=== PATIENT | female | born 2000 | race Caucasian/White ===

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

== ENCOUNTER 2020-01-08 17:16 | Emergency (ER) | payer SELFPAY ==
--- NOTE | 2020-01-08 17:58 | ER ---
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 Transition of care: patient was not received from another setting of care. Onset: The symptoms/episode began/occurred suddenly. Anaphylaxis evaluation, the patient reports or I have noted the following symptoms which indicate a significant risk of anaphylaxis:. Onset of symptoms was January 08, 2020. Risk Assessment: Do you want to hurt yourself or someone else? Patient reports no desire to harm self or others. Care prior to arrival: None. 17:26 Method Of Arrival: Ambulatory hb 17:26 Acuity: GLORIA 3 hb 18:47 Initial Sepsis Screen: Does the patient meet any 2 criteria? No. Patient's initial ls4 sepsis screen is negative. Does the patient have a suspected source of infection? No. Patient's initial sepsis screen is negative. Triage Assessment: 17:57 General: Appears in no apparent distress. comfortable, Behavior is calm, cooperative, ls4 appropriate for age. Pain: Denies pain. Neuro: No deficits noted. Cardiovascular: No deficits noted. Respiratory: No deficits noted. 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 - Coronavirus screen:: The patient has NOT traveled to [place] in the past 14 days. The patient has NOT had contact with known/suspected case of Coronavirus? Proceed with normal triage procedures. - Social history:: Smoking status: Reported history of juuling and/or vaping. - Ebola Screening: : No symptoms or risks identified at this time. Screenin:45 Abuse screen: Denies threats or abuse. Denies injuries from another. Nutritional ls4 screening: No deficits noted. Tuberculosis screening: No symptoms or risk factors identified. Fall Risk None identified. Assessment: 17:30 General: Appears in no apparent distress. Behavior is calm, cooperative. Respiratory: ls4 Airway is patent Respiratory effort is even, unlabored, Respiratory pattern is regular, Breath sounds are clear bilaterally. 17:30 Neuro: No deficits noted. Derm: No deficits noted. Musculoskeletal: No deficits noted. ls4 18:44 Reassessment: Patient appears in no apparent distress at this time. Patient and/or ls4 family updated on plan of care and expected duration. Pain level reassessed. Patient is alert, oriented x 3, equal unlabored respirations, skin warm/dry/pink. Vital Signs: 17:28 BP 95 / 51; Pulse 104; Resp 16; Temp 97.2; Pulse Ox 98% on R/A; Weight 56.7 kg; Height hb 5 ft. 2 in. (157.48 cm); Pain 0/10; 18:30 BP 102 / 58; Pulse 72; Resp 14; Temp 97.9; Pulse Ox 98% on R/A; Pain 0/10; ls4 17:28 Body Mass Index 22.86 (56.70 kg, 157.48 cm) hb ED Course: 17:18 Patient arrived in ED. ag5 17:27 Triage completed. hb 17:28 Arm band placed on. hb 17:29 Victorino Enriquez MD is Attending Physician. shashank 17:29 Patient has correct armband on for positive identification. Bed in low position. Call ls4 light in reach. Side rails up X 1. 17:29 Pulse ox on. NIBP on. Verbal reassurance given. ls4 17:32 No provider procedures requiring assistance completed. Patient did not have IV access ls4 during this emergency room visit. 17:56 Jada Mclean, RN is Primary Nurse. ls4 Administered Medications: 18:03 Drug: Pepcid 40 mg Route: PO; ls4 18:30 Follow up: Response: No adverse reaction; Marked relief of symptoms ls4 18:03 Drug: predniSONE 60 mg Route: PO; ls4 18:30 Follow up: Response: No adverse reaction; Marked relief of symptoms ls4 18:04 Drug: Benadryl 50 mg Route: PO; ls4 18:42 Follow up: Response: No adverse reaction; Marked relief of symptoms ls4 Outcome: 17:46 Discharge ordered by . [facility] 18:46 Discharged to home ambulatory, with significant other. ls4 18:46 Condition: good 18:46 Discharge instructions given to patient, significant other, Instructed on discharge instructions, follow up and referral plans. medication usage, Demonstrated understanding of instructions, follow-up care, medications, Prescriptions given X 4. 18:49 Patient left the ED. ls4 Signatures: Victorino Enriquez MD MD cha Baxter, Heather, RN Jada Cox RN RN ls4 Dontae Rae [facility]
--- NOTE | 2020-01-08 17:58 | EDPHYS ---
Physician Documentation [facility] Name: Meek Kee Age: 20 yrs Sex: Female : 2000 Arrival Date: 01/08/2020 Time: 17:18 Bed 30 Private MD: ED Physician Victorino Enriquez HPI: 01/08 17:37 This 20 yrs old Female presents to ER via Ambulatory with complaints of shashank Allergic Reaction. 17:37 The patient presents with difficulty swallowing, localized swelling, nasal itching, shashank redness of skin, runny nose, swelling of the lips. Onset: The symptoms/episode began/occurred 2 hour(s) ago. Associated signs and symptoms: Pertinent positives:. 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 - Coronavirus screen:: The patient has NOT traveled to [place] in the past 14 days. The patient has NOT had contact with known/suspected case of Coronavirus? Proceed with normal triage procedures. - Social history:: Smoking status: Reported history of juuling and/or vaping. - Ebola Screening: : No symptoms or risks identified at this time. ROS: 17:41 Constitutional: Negative for fever, chills, and weight loss, Eyes: Negative for injury, shashank pain, redness, and discharge, ENT: Negative for injury, pain, and discharge, Neck: Negative for injury, pain, and swelling, Cardiovascular: Negative for chest pain, palpitations, and edema, Abdomen/GI: Negative for abdominal pain, nausea, vomiting, diarrhea, and constipation, Back: Negative for injury and pain, : Negative for injury, bleeding, discharge, and swelling, MS/Extremity: Negative for injury and deformity, Skin: Negative for injury, rash, and discoloration, Neuro: Negative for headache, weakness, numbness, tingling, and seizure. 17:41 Respiratory: Positive for cough. 17:41 Skin: Positive for rash. Exam: 17:41 Constitutional: This is a well developed, well nourished patient who is awake, alert, shashank and in no acute distress. Head/Face: Normocephalic, atraumatic. Eyes: Pupils equal round and reactive to light, extra-ocular motions intact. Lids and lashes normal. Conjunctiva and sclera are non-icteric and not injected. Cornea within normal limits. Periorbital areas with no swelling, redness, or edema. Neck: Trachea midline, no thyromegaly or masses palpated, and no cervical lymphadenopathy. Supple, full range of motion without nuchal rigidity, or vertebral point tenderness. No Meningismus. Chest/axilla: Normal chest wall appearance and motion. Nontender with no deformity. No lesions are appreciated. Cardiovascular: Regular rate and rhythm with a normal S1 and S2. No gallops, murmurs, or rubs. Normal PMI, no JVD. No pulse deficits. Respiratory: Lungs have equal breath sounds bilaterally, clear to auscultation and percussion. No rales, rhonchi or wheezes noted. No increased work of breathing, no retractions or nasal flaring. Abdomen/GI: Soft, non-tender, with normal bowel sounds. No distension or tympany. No guarding or rebound. No evidence of tenderness throughout. Back: No spinal tenderness. No costovertebral tenderness. Full range of motion. MS/ Extremity: Pulses equal, no cyanosis. Neurovascular intact. Full, normal range of motion. Neuro: Awake and alert, GCS 15, oriented to person, place, time, and situation. Cranial nerves II-XII grossly intact. Motor strength 5/5 in all extremities. Sensory grossly intact. Cerebellar exam normal. Normal gait. Psych: Awake, alert, with orientation to person, place and time. Behavior, mood, and affect are within normal limits. 17:41 ENT: Mouth: Lips: dry, Oral mucosa: normal, Gums: normal with healthy appearance, Tongue: is normal, abscess, is not appreciated, drooling, is not appreciated. Vital Signs: 17:28 BP 95 / 51; Pulse 104; Resp 16; Temp 97.2; Pulse Ox 98% on R/A; Weight 56.7 kg; Height hb 5 ft. 2 in. (157.48 cm); Pain 0/10; 18:30 BP 102 / 58; Pulse 72; Resp 14; Temp 97.9; Pulse Ox 98% on R/A; Pain 0/10; ls4 17:28 Body Mass Index 22.86 (56.70 kg, 157.48 cm) MDM: 17:29 Patient medically screened. [facility] 17:43 Data reviewed: vital signs, nurses notes. [facility] Administered Medications: 18:03 Drug: Pepcid 40 mg Route: PO; ls4 18:30 Follow up: Response: No adverse reaction; Marked relief of symptoms ls4 18:03 Drug: predniSONE 60 mg Route: PO; ls4 18:30 Follow up: Response: No adverse reaction; Marked relief of symptoms ls4 18:04 Drug: Benadryl 50 mg Route: PO; ls4 18:42 Follow up: Response: No adverse reaction; Marked relief of symptoms ls4 Disposition: 01/08/20 17:46 Discharged to Home. Impression: Urticaria. - Condition is Stable. - Discharge Instructions: Anaphylactic Reaction, Adult, Food Allergy, Hives, Anaphylactic Reaction, Jgah-[id number], Food Allergy, Gomz-vh-Zgay, Hives, Llad-fe-Zjct. - Prescriptions for Benadryl 25 mg Oral Capsule - take 1 capsule by ORAL route every 6 hours As needed; 30 tablet. Pepcid 20 mg Oral Tablet - take 1 tablet by ORAL route every 12 hours for 10 days; 20 tablet. Prednisone 20 mg Oral Tablet - take 2 tablet by ORAL route once daily for 5 days; 10 tablet. EpiPen 0.3 mg Injection auto- injector - inject 1 pen by INTRAMUSCULAR route as directed Inject into the outer portion of the thigh, through clothing if necessary. Indicated in the emergency treatment of allergic reactions; 1 box. - Medication Reconciliation Form, Thank You Letter, Antibiotic Education, Prescription Opioid Use form. - Follow up: Private Physician; When: 2 - 3 days; Reason: Recheck today's complaints, Continuance of care, Re-evaluation by your physician. - Problem is new. - Symptoms have improved. Signatures: Victorino Enriquez MD MD cha Baxter, Heather, RN RN Jada Martínez RN RN ls4 Corrections: (The following items were deleted from the chart) 18:49 17:46 01/08/2020 17:46 Discharged to Home. Impression: Urticaria. Condition is Stable. ls4 Forms are Medication Reconciliation Form, Thank You Letter, Antibiotic Education, Prescription Opioid Use. Follow up: Private Physician; When: 2 - 3 days; Reason: Recheck today's complaints, Continuance of care, Re-evaluation by your physician. Problem is new. Symptoms have improved. hsashank
[2020-01-08] MEDS ORDERED: predniSONE 20 MG TAB ONE (18:03)
[2020-01-08] MEDS ORDERED: FAMOTIDINE 20 MG TAB ONE (18:03)
[2020-01-08] MEDS ORDERED: DIPHENHYDRAMINE 25 MG TAB/CAP ONE (18:03)
[2020-01-08 20:57] VITALS: O2SAT 98
[2020-01-08 21:08] VITALS: BP 102/58; TEMP 97.9
== END 2020-01-08 18:49 | disposition home or self-care (01) ==
LOC: ER 17:16
DX: L50.9 Urticaria, unspecified (principal)
CPT/HCPCS: 99283; J7512

== ENCOUNTER 2020-08-19 13:12 | Emergency (ER) | payer SELFPAY ==
--- NOTE | 2020-08-19 14:48 | ER ---
Nurse's Notes [facility] Name: Meek Kee Age: 20 yrs Sex: Female : 2000 Arrival Date: 08/19/2020 Time: 13:14 Bed 20 Private MD: Diagnosis: Person with feared health complaint in whom no diagnosis is made Presentation: 08/19 13:27 Chief complaint: Patient states: Sitting on the ground painting, sudden onset of SOB, jl7 chills and got lightheaded, last about 5 min. Pt denies symptoms now. Coronavirus screen: Client denies travel out of the [place] in the last 14 days. At this time, the client does not indicate any symptoms associated with coronavirus-19. Ebola Screen: No symptoms or risks identified at this time. Initial Sepsis Screen: Does the patient meet any 2 criteria? No. Patient's initial sepsis screen is negative. Does the patient have a suspected source of infection? No. Patient's initial sepsis screen is negative. Risk Assessment: Do you want to hurt yourself or someone else?. Onset of symptoms was August 19, 2020. Care prior to arrival: None. 13:27 Method Of Arrival: Ambulatory jl7 13:27 Acuity: GLORIA 3 jl7 Triage Assessment: 13:29 General: Appears in no apparent distress. uncomfortable, Behavior is calm, cooperative, jl7 appropriate for age. Pain: Denies pain. Neuro: Level of Consciousness is awake, alert, obeys commands, Oriented to person, place, time, situation, Moves all extremities. Full function Gait is steady. Cardiovascular: Patient's skin is warm and dry. Respiratory: Airway is patent Respiratory effort is even, unlabored, Respiratory pattern is regular, symmetrical. Derm: Skin is pink, warm \T\ dry. [employer] [employer]: 13:29 LMP 08/11/2020 jl7 Historical: - Allergies: 13:29 No Known Allergies; jl7 - Home Meds: 13:29 None [Active]; jl7 - PMHx: 13:29 None; jl7 - PSHx: 13:29 None; jl7 - Immunization history:: Adult Immunizations unknown. - Social history:: Smoking status: Reported history of juuling and/or vaping. Patient uses street drugs, marijuana. Screenin:00 Abuse screen: Denies threats or abuse. Denies injuries from another. Nutritional ca1 screening: No deficits noted. Tuberculosis screening: No symptoms or risk factors identified. Fall Risk None identified. Assessment: 14:00 General: Appears in no apparent distress. comfortable, Behavior is calm, cooperative, ca1 appropriate for age. Pain: Denies pain. Neuro: Level of Consciousness is awake, alert, obeys commands, Oriented to person, place, time, situation. Cardiovascular: Heart tones S1 S2 present Capillary refill < 3 seconds Patient's skin is warm and dry. Pulses are all present. Rhythm is sinus bradycardia. Respiratory: Airway is patent Respiratory effort is even, unlabored, Respiratory pattern is regular, symmetrical, Breath sounds are clear bilaterally. Derm: Skin is intact, is healthy with good turgor, Skin is pink, warm \T\ dry. Musculoskeletal: Circulation, motion, and sensation intact. Capillary refill < 3 seconds. 14:47 Reassessment: Patient appears in no apparent distress at this time. Patient is alert, ca1 oriented x 3, equal unlabored respirations, skin warm/dry/pink. 14:57 Reassessment: PT D/C HOME AMBULATORY WITH FAMILY, DX WITH PANIC ATTACK. bp Vital Signs: 13:27 BP 121 / 64; Pulse 62; Resp 17; Temp 98.2; Pulse Ox 99% ; Weight 56.7 kg; Pain 0/10; jl7 14:47 BP 104 / 56; Pulse 56; Resp 18 S; Pulse Ox 99% on R/A; ca1 ED Course: 13:14 Patient arrived in ED. as 13:29 Triage completed. jl7 13:29 Arm band placed on right wrist. jl7 13:53 Aissatou De Paz FNP-C is [facility]. kb 13:53 Victorino Enriquez MD is Attending Physician. kb 13:55 Veronica Orta, HUMZA is Primary Nurse. ca1 14:00 Patient has correct armband on for positive identification. Bed in low position. Call ca1 light in reach. Side rails up X 1. Pulse ox on. NIBP on. Warm blanket given. 14:47 No provider procedures requiring assistance completed. Patient did not have IV access ca1 during this emergency room visit. 14:50 Chest Single View XRAY In Process Unspecified. EDMS Administered Medications: No medications were administered Outcome: 14:48 Discharge ordered by . kb 14:57 Discharged to home ambulatory, with family. bp 14:57 Condition: stable 14:57 Discharge instructions given to patient, Instructed on discharge instructions, follow up and referral plans. Demonstrated understanding of instructions, follow-up care. 14:58 Patient left the ED. bp Signatures: Dispatcher [employer] EDMS Aissatou De Paz, OILSEED MEAT PRESSER-C HENRY-Brooke Larson Jahala, RN RN jl7 Mark Sinclair RN RN bp Veronica Orta RN RN ca1
--- NOTE | 2020-08-19 14:49 | EDPHYS ---
Physician Documentation [facility] Name: Meek Kee Age: 20 yrs Sex: Female : 2000 Arrival Date: 08/19/2020 Time: 13:14 Bed 20 Private MD: ED Physician Victorino Enriquez HPI: 08/19 14:45 This 20 yrs old Female presents to ER via Ambulatory with complaints of kb Shortness Of Breath. 14:45 The patient has shortness of breath at rest. Onset: The symptoms/episode began/occurred kb this morning. Duration: The symptoms are continuous, resolved now. The patient's shortness of breath has no apparent modifying factors. Associated signs and symptoms: The patient has no apparent associated signs or symptoms. Severity of symptoms: At their worst the symptoms were moderate in the emergency department the symptoms are unchanged. The patient has not experienced similar symptoms in the past. The patient has not recently seen a physician. Pt reports she was painting and had a 5 minute episode of chills, shortness of breath and lightheadedness. States symptoms resolved and now she feels fine, but she wanted to come get checked out. 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 - Social history:: Smoking status: Reported history of juuling and/or vaping. Patient uses street drugs, marijuana. ROS: 14:44 Cardiovascular: Negative for chest pain, palpitations, and edema, Abdomen/GI: Negative kb for abdominal pain, nausea, vomiting, diarrhea, and constipation, Back: Negative for injury and pain, MS/Extremity: Negative for injury and deformity, Skin: Negative for injury, rash, and discoloration. 14:44 Constitutional: Positive for chills. kb 14:44 Respiratory: Positive for shortness of breath. 14:44 Neuro: Positive for lightheadedness. Exam: 14:45 Constitutional: This is a well developed, well nourished patient who is awake, alert, kb and in no acute distress. Head/Face: Normocephalic, atraumatic. Chest/axilla: Normal chest wall appearance and motion. Nontender with no deformity. No lesions are appreciated. Cardiovascular: Regular rate and rhythm with a normal S1 and S2. No gallops, murmurs, or rubs. Normal PMI, no JVD. No pulse deficits. Respiratory: Lungs have equal breath sounds bilaterally, clear to auscultation and percussion. No rales, rhonchi or wheezes noted. No increased work of breathing, no retractions or nasal flaring. Abdomen/GI: Soft, non-tender, with normal bowel sounds. No distension or tympany. No guarding or rebound. No evidence of tenderness throughout. Back: No spinal tenderness. No costovertebral tenderness. Full range of motion. Skin: Warm, dry with normal turgor. Normal color with no rashes, no lesions, and no evidence of cellulitis. MS/ Extremity: Pulses equal, no cyanosis. Neurovascular intact. Full, normal range of motion. Neuro: Awake and alert, GCS 15, oriented to person, place, time, and situation. Cranial nerves II-XII grossly intact. Motor strength 5/5 in all extremities. Sensory grossly intact. Cerebellar exam normal. Normal gait. 14:47 ECG was reviewed by the Attending Physician. Vital Signs: 13:27 BP 121 / 64; Pulse 62; Resp 17; Temp 98.2; Pulse Ox 99% ; Weight 56.7 kg; Pain 0/10; jl7 14:47 BP 104 / 56; Pulse 56; Resp 18 S; Pulse Ox 99% on R/A; ca1 MDM: 13:53 Patient medically screened. [facility] 13:53 Data reviewed: vital signs, nurses notes. Data interpreted: Pulse oximetry: on room air kb is 99 %. Interpretation: normal. 14:44 Counseling: I had a detailed discussion with the patient and/or guardian regarding: the kb historical points, exam findings, and any diagnostic results supporting the discharge/admit diagnosis, radiology results, the need for outpatient follow up, a family practitioner, to return to the emergency department if symptoms worsen or persist or if there are any questions or concerns that arise at home. 08/19 14:04 Order name: Chest Single View XRAY kb 08/19 14:04 Order name: EKG; Complete Time: 14:05 kb 08/19 14:04 Order name: EKG - Nurse/Tech; Complete Time: 14:29 kb EC:47 Rate is 53 beats/min. Rhythm is regular. QRS Greer is Normal. KS interval is normal at kb 154 msec. QRS interval is normal at 414 msec. QT interval is normal at 50 msec. Administered Medications: No medications were administered Disposition: 08/20 13:52 Co-signature as Attending Physician, Victorino Enriquez MD I agree with the assessment and shashank plan of care. Disposition: 08/19/20 14:48 Discharged to Home. Impression: Person with feared health complaint in whom no diagnosis is made. - Condition is Stable. - Discharge Instructions: Panic Attacks, [id number]-Iums. - Medication Reconciliation Form, Thank You Letter, Antibiotic Education, Prescription Opioid Use, Work release form form. - Follow up: Private Physician; When: 2 - 3 days; Reason: Recheck today's complaints, Continuance of care, Re-evaluation by your physician. Follow up: Emergency Department; When: As needed; Reason: Worsening of condition. Signatures: Dispatcher [employer] EDFL Aissatou De Paz, OLEG FIGUEROA-Victorino Elizabeth MD MD cha Leal, Jahala, RN RN jlMark Augustin RN RN bp Corrections: (The following items were deleted from the chart) 08/19 14:45 14:44 Constitutional: Negative for fever, chills, and weight loss, Cardiovascular: kb Negative for chest pain, palpitations, and edema, kb 14:58 14:48 08/19/2020 14:48 Discharged to Home. Impression: Person with feared health bp complaint in whom no diagnosis is made. Condition is Stable. Forms are Medication Reconciliation Form, Thank You Letter, Antibiotic Education, Prescription Opioid Use. Follow up: Private Physician; When: 2 - 3 days; Reason: Recheck today's complaints, Continuance of care, Re-evaluation by your physician. Follow up: Emergency Department; When: As needed; Reason: Worsening of condition. kb
--- NOTE | 2020-08-19 15:07 | RAD REPORT ---
EXAM DESCRIPTION: Constance Single View08/19/2020 2:50 pm CLINICAL HISTORY: Shortness of breath COMPARISON: none FINDINGS: The lungs appear clear of acute infiltrate. The heart is normal size IMPRESSION: No acute abnormalities displayed
[2020-08-19 15:12] VITALS: TEMP 98.2; O2SAT 99
[2020-08-19 15:13] VITALS: BP 104/56
--- NOTE | 2020-08-20 10:45 | EKG ---
Test Date: 2020-08-19 Test Time: 14:30:19 Bulking Machine Operator: JAKE MEASUREMENT RESULTS: Intervals: Rate: 53 SD: 154 QRSD: 82 QT: 414 QTc: 388 [place]: P: 50 SD: 154 QRS: 87 T: 68 INTERPRETIVE STATEMENTS: Sinus bradycardia with sinus arrhythmia Otherwise normal ECG No previous ECG available for comparison Electronically Signed On 08-20-20 10:44:29 CDT by Ar Alejo
== END 2020-08-19 14:58 | disposition home or self-care (01) ==
LOC: ER 13:12
DX: Z71.1 Person with feared health complaint in whom no diagnosis is made (principal); Z87.891 Personal history of nicotine dependence
CPT/HCPCS: 71045; 93005; 99284

== ENCOUNTER 2023-07-17 19:14 | Emergency (ER) | payer SELFPAY ==
[2023-07-17] MEDS ORDERED: PROMETHAZINE INJ 25 MG/ML AMP ONE (19:43)
[2023-07-17] MEDS ORDERED: D5LR 1,000 ML IV ONE (19:43)
[2023-07-17 19:48] LABS: Absolute Lymphocytes (CBC) 3.2 K/uL (0.7-4.9); Hematocrit 37.2 % (36.0-45.0); Lymphocytes % 23.1 % (15.3-44.8); MCV 92.7 fL (80-100); MPV 8.3 fL (7.6-11.3); Platelets 277 thou/uL (152-406); RBC Red Blood Cell Count 4.01 M/uL (3.86-4.86)
[2023-07-17 20:08] LABS: Albumin 4.5 g/dL (3.4-5.0); Bilirubin Total 0.5 mg/dL (0.2-1.0); Potassium 3.3 mEq/L (3.5-5.1); Protein, Total 7.9 g/dL (6.4-8.2)
[2023-07-17] MEDS ORDERED: DIPHENHYDRAMINE 50 MG/ML VIAL ONE (23:10)
[2023-07-17] MEDS ORDERED: METOCLOPRAMIDE 10 MG/2mL INJ ONE (23:11)
[2023-07-17] MEDS ORDERED: NA CHLORIDE 0.9% 1,000 ML ONE (23:11)
--- NOTE | 2023-07-17 23:57 | EDPHYS ---
Physician Documentation [facility] Name: Meek Kee Age: 23 yrs Sex: Female : 2000 Arrival Date: 07/17/2023 Time: 19:14 Bed 15 Private MD: ED Physician Dandy Ramirez HPI: 07/17 19:39 This 23 yrs old Female presents to ER via Wheelchair with complaints of 8WKS GESTATION, ms3 Nausea/Vomiting, Pt states she is vomiting blood. 19:39 23-year-old female with past medical history of anxiety, depression presents for ms3 vomiting that began this morning. Patient states her last menstrual period was April 27, 2023 and she is a G1, P0. Patient states she is approximately 7 to 8 weeks . Patient has not had juvenile probation officer follow-up. Patient denies vaginal bleeding, abdominal pain, fevers. Patient endorses chills.. 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 - Social history:: Smoking status: Reported history of juuling and/or vaping. ROS: 19:39 Constitutional: Negative for fever, and chills. Neck: Negative for injury, pain, and ms3 swelling, Cardiovascular: Negative for chest pain, and palpitations. Abdomen/GI: Negative for abdominal pain, nausea, vomiting, diarrhea, and constipation, MS/Extremity: Negative for injury and deformity, Skin: Negative for injury, rash, and discoloration. 19:39 Abdomen/GI: Positive for nausea and vomiting. 19:39 All other systems are negative. Exam: 19:39 Constitutional: This is a well developed, well nourished patient who is awake, alert, ms3 and in no acute distress. Head/Face: Normocephalic, atraumatic. Neck: Trachea midline, no cervical lymphadenopathy. Supple, full range of motion without nuchal rigidity, or vertebral point tenderness. No Meningismus. Chest/axilla: Normal chest wall appearance and motion. Nontender with no deformity. Cardiovascular: Regular rate and rhythm with a normal S1 and S2. No gallops, murmurs, or rubs. Normal PMI, no JVD. No pulse deficits. Respiratory: Lungs have equal breath sounds bilaterally, clear to auscultation and percussion. No rales, rhonchi or wheezes noted. No increased work of breathing, no retractions or nasal flaring. Abdomen/GI: Soft, non-tender, with normal bowel sounds. No distension or tympany. No guarding or rebound. No evidence of tenderness throughout. Skin: Warm, dry with normal turgor. Normal color with no rashes, no lesions, and no evidence of cellulitis. MS/ Extremity: Pulses equal, no cyanosis. Neurovascular intact. Full, normal range of motion. Vital Signs: 19:19 BP 115 / 77 LA; Pulse 70; Resp 23; Temp 97.6(O); Weight 54.43 kg; ap3 19:30 BP 122 / 54; Pulse 72; Resp 16 S; Pulse Ox 100% on R/A; ha1 21:00 BP 112 / 64; Pulse 76; Resp 18; Pulse Ox 97% on R/A; oe 22:00 BP 118 / 68; Pulse 72; Resp 18 S; Pulse Ox 100% on R/A; ha1 22:50 Temp 97.9(O); ha1 23:00 BP 117 / 68; Pulse 68; Resp 18 S; Pulse Ox 100% on R/A; ha1 07/18 00:00 BP 113 / 67; Pulse 67; Resp 17 S; Pulse Ox 100% on R/A; ha1 MDM: 07/17 19:28 Patient medically screened. ms3 19:39 Differential diagnosis: viral gastroenteritis, gastroenteritis, Hyperemesis Gravidarum ms3 vs Dehydration. 23:56 Data reviewed: vital signs, nurses notes, lab test result(s), and as a result, I will ms3 discharge patient. Consideration of Admission/Observation Escalation of care including admission/observation considered. Patient symptoms improved and patient states she would like to be discharged. I considered the following discharge prescriptions or medication management in the emergency department Medications were administered in the Emergency Department. See MAR. Historians other than the Patient: Spouse/Significant Other: . Counseling: I had a detailed discussion with the patient and/or guardian regarding the historical points, exam findings, and any diagnostic results supporting the discharge/admit diagnosis, lab results, the need for outpatient follow up, to return to the emergency department if symptoms worsen or persist or if there are any questions or concerns that arise at home. Response to treatment: the patient's symptoms have markedly improved after treatment, and as a result, I will discharge patient. Special discussion: I discussed with the patient/guardian in detail that at this point there is no indication for admission to the hospital. It is understood, however, that if the symptoms persist or worsen the patient needs to return immediately for re-evaluation. ED course: Patient states symptoms have improved after medication administration. Patient wanting to be discharged home. All questions were answered. Return precautions discussed include worsening symptoms, or any other concerns. Patient to follow-up with [facility] OB.. 07/17 19:30 Order name: CBC with Diff; Complete Time: 23:13 ms3 07/17 19:30 Order name: CMP; Complete Time: 23:13 ms3 07/17 23:35 Order name: PO challenge; Complete Time: 23:41 ms3 Administered Medications: 19:55 Drug: D5-LR IV 1000 ml Route: IV; Rate: bolus; Site: right antecubital; ap3 07/18 00:19 Follow up: Response: No adverse reaction; IV Status: Completed infusion; IV Intake: ha1 1000ml 07/17 19:55 Drug: Promethazine IM 25 mg Route: IM; Site: right deltoid; ap3 20:30 Follow up: Response: No adverse reaction; Nausea is decreased 1 23:05 Drug: metoCLOPramide IVP 10 mg Route: IVP; Site: right antecubital; 07/18 00:18 Follow up: Response: No adverse reaction; Nausea is decreased 07/17 23:08 Drug: diphenhydrAMINE IVP 12.5 mg Route: IVP; Site: right antecubital; ha1 07/18 00:18 Follow up: Response: No adverse reaction 07/17 23:08 Drug: NS 0.9% IV 1000 ml Route: IV; Rate: 1000 ml; Site: right antecubital; ha1 07/18 00:19 Follow up: Response: No adverse reaction; IV Status: Completed infusion; IV Intake: ha1 1000ml Disposition Summary: 07/17/23 23:56 Discharge Ordered Location: Home ms3 Condition: Stable ms3 Diagnosis - Hyperemesis gravidarum with metabolic disturbance ms3 Followup: ms3 - With: Private Physician - When: 2 - 3 days - Reason: Recheck today's complaints Discharge Instructions: - Discharge Summary Sheet ms3 - Hyperemesis Gravidarum ms3 - Morning Sickness, [id number] ms3 Forms: - Medication Reconciliation Form ms3 - Thank You Letter ms3 - Antibiotic Education ms3 - Prescription Opioid Use ms3 - Patient Portal Instructions ms3 - Leadership Thank You Letter ms3 Prescriptions: - Diclegis 10-10 mg Oral tablet, delayed release (enteric coated) - take 1 tablet by ORAL route every day at bedtime; 20 tablet; Refills: 0, ms3 Product Selection Permitted - promethazine 25 mg Rectal suppository - insert 1 suppository by RECTAL route every 4 hours as needed for nausea and ms3 vomiting; 15 suppository; Refills: 0, Product Selection Permitted Signatures: Dispatcher [employer] Amada Phillip, RN RN ap3 Dandy Ramirez DO DO ms3 Alyssa Mendoza, RN RN ha1
--- NOTE | 2023-07-17 23:57 | ER ---
Nurse's Notes [facility] Name: Meek Kee Age: 23 yrs Sex: Female : 2000 Arrival Date: 07/17/2023 Time: 19:14 Bed 15 Private MD: Diagnosis: Hyperemesis gravidarum with metabolic disturbance Presentation: 07/17 19:19 Chief complaint: Patient states: she is approx 7 weeks and has been having ap3 nausea/vomiting since this morning. Coronavirus screen: At this time, the client does not indicate any symptoms associated with coronavirus-19. Ebola Screen: No symptoms or risks identified at this time. Initial Sepsis Screen: Does the patient meet any 2 criteria? No. Patient's initial sepsis screen is negative. Does the patient have a suspected source of infection? No. Patient's initial sepsis screen is negative. Risk Assessment: Do you want to hurt yourself or someone else? Patient reports no desire to harm self or others. Onset of symptoms was July 17, 2023. 19:19 Method Of Arrival: Wheelchair ap3 19:19 Acuity: GLORIA 3 ap3 Triage Assessment: 19:21 General: Appears ill, Behavior is cooperative, appropriate for age, anxious. Pain: ap3 Denies pain. Neuro: Level of Consciousness is awake, alert, obeys commands, Oriented to person, place, time, situation. Cardiovascular:. Respiratory: Airway is patent Respiratory effort is even, unlabored, Respiratory pattern is regular, symmetrical. GI: Pt is actively vomiting Reports nausea, vomiting. 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 - Social history:: Smoking status: Reported history of juuling and/or vaping. Screenin:22 [facility] ED Fall Risk Assessment (Adult) History of falling in the last 3 months, ap3 including since admission No falls in past 3 months (0 pts). Abuse screen: Denies threats or abuse. Nutritional screening: No deficits noted. Tuberculosis screening: No symptoms or risk factors identified. Assessment: 19:22 General: Appears comfortable, Behavior is cooperative, crying. Pain: Denies pain. ha1 Neuro: Level of Consciousness is awake, alert, obeys commands, Oriented to person, place, time, situation. Cardiovascular: Patient's skin is warm and dry. Respiratory: Airway is patent Respiratory effort is even, unlabored, Respiratory pattern is regular, symmetrical. GI: Abdomen is flat, non-distended, Bowel sounds present X 4 quads. Abd is soft and non tender Reports nausea, vomiting. : No signs and/or symptoms were reported regarding the genitourinary system. Derm: Skin is pink, warm \T\ dry. Musculoskeletal: Circulation, motion, and sensation intact. Range of motion: intact in all extremities. 21:00 Reassessment: Patient and/or family updated on plan of care and expected duration. Pain ha1 level reassessed. Patient is alert, oriented x 3, equal unlabored respirations, skin warm/dry/pink. Patient states feeling better. Patient states symptoms have improved. 22:00 Reassessment: Patient and/or family updated on plan of care and expected duration. Pain ha1 level reassessed. Patient is alert, oriented x 3, equal unlabored respirations, skin warm/dry/pink. 23:00 Reassessment: Patient and/or family updated on plan of care and expected duration. Pain ha1 level reassessed. Patient is alert, oriented x 3, equal unlabored respirations, skin warm/dry/pink. Patient states feeling better. Patient states symptoms have improved. 07/18 00:00 Reassessment: Patient and/or family updated on plan of care and expected duration. Pain ha1 level reassessed. Patient is alert, oriented x 3, equal unlabored respirations, skin warm/dry/pink. Patient states feeling better. Patient states symptoms have improved. Vital Signs: 07/17 19:19 BP 115 / 77 LA; Pulse 70; Resp 23; Temp 97.6(O); Weight 54.43 kg; ap3 19:30 BP 122 / 54; Pulse 72; Resp 16 S; Pulse Ox 100% on R/A; ha1 21:00 BP 112 / 64; Pulse 76; Resp 18; Pulse Ox 97% on R/A; oe 22:00 BP 118 / 68; Pulse 72; Resp 18 S; Pulse Ox 100% on R/A; ha1 22:50 Temp 97.9(O); ha1 23:00 BP 117 / 68; Pulse 68; Resp 18 S; Pulse Ox 100% on R/A; ha1 07/18 00:00 BP 113 / 67; Pulse 67; Resp 17 S; Pulse Ox 100% on R/A; ha1 ED Course: 07/17 19:16 Patient arrived in ED. [id number] 19:21 Triage completed. ap3 19:22 Arm band placed on left wrist. ap3 19:24 Dandy Ramirez DO is Attending Physician. ms3 19:27 Patient has correct armband on for positive identification. Bed in low position. Call ap3 light in reach. Adult w/ patient. Pulse ox on. NIBP on. 19:42 CMP Sent. ha1 19:42 CBC with Diff Sent. ha1 19:54 Initial lab(s) drawn, by me, sent to lab. Inserted saline lock: 20 gauge in left ap3 antecubital area, using aseptic technique. Blood collected. 20:02 Alyssa Mendoza, RN is Primary Nurse. ha1 07/18 00:17 No provider procedures requiring assistance completed. IV discontinued, intact, ha1 bleeding controlled, No redness/swelling at site. Pressure dressing applied. 00:18 Provided Education on: need to follow up with OB. [facility] Administered Medications: 07/17 19:55 Drug: D5-LR IV 1000 ml Route: IV; Rate: bolus; Site: right antecubital; ap3 07/18 00:19 Follow up: Response: No adverse reaction; IV Status: Completed infusion; IV Intake: ha1 1000ml 07/17 19:55 Drug: Promethazine IM 25 mg Route: IM; Site: right deltoid; ap3 20:30 Follow up: Response: No adverse reaction; Nausea is decreased ha 23:05 Drug: metoCLOPramide IVP 10 mg Route: IVP; Site: right antecubital; 1 07/18 00:18 Follow up: Response: No adverse reaction; Nausea is decreased [facility] 07/17 23:08 Drug: diphenhydrAMINE IVP 12.5 mg Route: IVP; Site: right antecubital; ha1 07/18 00:18 Follow up: Response: No adverse reaction [facility] 07/17 23:08 Drug: NS 0.9% IV 1000 ml Route: IV; Rate: 1000 ml; Site: right antecubital; ha1 07/18 00:19 Follow up: Response: No adverse reaction; IV Status: Completed infusion; IV Intake: ha1 1000ml Medication: 07/17 20:04 VIS not applicable for this client. ha1 Intake: 07/18 00:19 IV: 1000ml; Total: 1000ml. ha1 00:19 IV: 1000ml; Total: 2000ml. ha1 Outcome: 07/17 23:56 Discharge ordered by . ms3 07/18 00:17 Discharged to home via wheelchair. ha1 Condition: stable Discharge instructions given to patient, Instructed on discharge instructions, follow up and referral plans. medication usage, Demonstrated understanding of instructions, follow-up care, medications, Prescriptions given X 2. 00:20 Patient left the ED. ha1 Signatures: Herber Beckwith Amanda, RN RN ap3 Dandy Ramirez DO DO ms3 Charlotte [id number] Alyssa Mendoza, RN RN ha1 Corrections: (The following items were deleted from the chart) 07/17 21:23 21:21 BP 112 / 64; Pulse 76bpm; Resp 18bpm; Pulse Ox 97% RA; oe oe
[2023-07-18 00:47] VITALS: BP 112/64; O2SAT 97
[2023-07-18 00:48] VITALS: TEMP 97.9
== END 2023-07-18 00:20 | disposition home or self-care (01) ==
LOC: ER 19:14
DX: O21.1 Hyperemesis gravidarum with metabolic disturbance (principal); Z3A.01 Less than 8 weeks gestation of pregnancy
CPT/HCPCS: 36415; 80053; 85025; 96361; 96372; 96374; 96375; 99284; J1200; J2550; J2765; J7030; J7121